=== PATIENT | male | born 1980 | race Caucasian/White ===

== ENCOUNTER 2017-06-24 20:10 | Emergency (ER) | payer OTHER ==
[2017-06-24 20:15] VITALS: PULSE 103; RESP 16; TEMP 97.4; O2SAT 98
[2017-06-24] MEDS ORDERED: Lidocaine/Epi 1% 1:100000 20 ML IJ ONE (20:42)
--- NOTE | 2017-06-24 20:45 | ED PDOC ---
HPI: Wound Care - HPI Time Seen by Provider: 06/24/17 20:19 Chief Complaint (Nursing): Abnormal Skin Integrity Chief Complaint (Provider): forehead laceration History Per: Patient History Of Present Illness: 36 y/o male ambulates to ED for evaluation of forehead laceration sustained prior to arrival. Patient states he slipped and hit head in to brick wall, with + loss of consciousness. Patient admits to drinking tonight. Denies headache, dizziness, neck/back pain, facial pain, nausea/vomiting, vision changes, extremity numbness/weakness. Tetanus up to date. Past Medical History Reviewed: Historical Data, Nursing Documentation, Vital Signs Vital Signs: Last Vital Signs Temp 97.4 F L 06/24/17 20:12 Pulse 103 H 06/24/17 20:12 Resp 16 06/24/17 20:12 BP 143/85 06/24/17 20:12 Pulse Ox 98 06/24/17 20:12 - Medical History PMH: No Chronic Diseases - Surgical History Surgical History: No Surg Hx - Family History Family History: States: No Known Family Hx - Living Arrangements Living Arrangements: Alone - Social History Current smoker - smoking cessation education provided: No Ex-Smoker (has not smoked in the last 12 months): No Alcohol: Social Drugs: Denies - Home Medications Home Medications: Ambulatory Orders Medication Instructions Recorded Ibuprofen [Motrin] 400 mg PO Q6 #30 tab 08/13/15 - Allergies Allergies/Adverse Reactions: Allergies Allergy/AdvReac Type Severity Reaction Status Date / Time No Known Allergies Allergy Verified 08/12/15 23:58 Review of Systems ROS Statement: Except As Marked, All Systems Reviewed And Found Negative Skin: Positive for: Other (forehead laceration) Physical Exam - Reviewed Nursing Documentation Reviewed: Yes Vital Signs Reviewed: Yes - Physical Exam Appears: Positive for: Well, Non-toxic, No Acute Distress Head Exam: Positive for: NORMOCEPHALIC. Negative for: ATRAUMATIC (2.5cm laceration left frontal scalp, mild surrounding edema) Skin: Positive for: Normal Color Eye Exam: Positive for: Normal appearance, EOMI, PERRL ENT: Positive for: TM Is/Are (clear bilaterally), Other (nasal abrasion; no swelling, tenderness, deformity noted. No septal hematoma bilaterally). Negative for: Nasal Congestion Cardiovascular/Chest: Positive for: Regular Rate, Rhythm Respiratory: Positive for: Normal Breath Sounds Gastrointestinal/Abdominal: Positive for: Normal Exam Back: Positive for: Normal Inspection Extremity: Positive for: Normal ROM Neurologic/Psych: Positive for: Alert, Oriented (x3), Gait (steady) - ECG O2 Sat by Pulse Oximetry: 98 - Progress ED Course And Treament: CT head Patient requesting Plastic Surgeon to repair facial laceration. Case discussed with Dr. Leal, who has agreed to come repair laceration EXAM: CT Head Without Intravenous Contrast CLINICAL HISTORY: 36 years old, male; Injury or trauma; Fall; Initial encounter; Concussion / head injury; With loss of consciousness; Not specified; Additional info: Head injury, ETOH. Sent phy. Doc. TECHNIQUE: Axial computed tomography images of the head/brain without intravenous contrast. All CT scans at this facility use one or more dose reduction techniques, viz.: automated exposure control; ma/kV adjustment per patient size (including targeted exams where dose is matched to indication; i.e. head); or iterative reconstruction technique. Coronal and sagittal reformatted images were created and reviewed. COMPARISON: No relevant prior studies available. FINDINGS: Limitations: Motion artifact - mild. Brain: Mild atrophy. No definite intracranial hemorrhage. No mass. No definite edema. Benign cerebellar tonsillar ectopia. Ventricles: No hydrocephalus. Bones/joints: No acute fracture. Soft tissues: Frontal soft tissue swelling. Sinuses: Scattered minimal mucosal thickening. Mastoid air cells: No mastoid effusion. Orbits: Unremarkable as visualized. IMPRESSION: 1. No definite intracranial hemorrhage. 2. Incidental/non-acute findings are described above. Laceration repair performed by Dr. Leal; recommends follow up in office in 1 week. Return precautions given. Disposition - Clinical Impression Clinical Impression: Forehead laceration, Head injury - Patient ED Disposition Is Patient to be Admitted: No Counseled Patient/Family Regarding: Studies Performed, Diagnosis, Need For Followup - Disposition Referrals: Benjamin Leal MD [Medical Doctor] - Disposition: Routine/Home Disposition Time: 22:19 Condition: IMPROVED Instructions: Laceration Repair With Stitches (DC), Minor Head Injury Forms: [employer] (Stateless)
[2017-06-24] MEDS ORDERED: Lidocaine 1% w Epi 1:100,000 Inj ONE (21:11)
--- NOTE | 2017-06-24 21:22 | CT ---
EXAM: CT Head Without Intravenous Contrast CLINICAL HISTORY: 36 years old, male; Injury or trauma; Fall; Initial encounter; Concussion / head injury; With loss of consciousness; Not specified; Additional info: Head injury, ETOH. Sent phy. Doc. TECHNIQUE: Axial computed tomography images of the head/brain without intravenous contrast. All CT scans at this facility use one or more dose reduction techniques, viz.: automated exposure control; ma/kV adjustment per patient size (including targeted exams where dose is matched to indication; i.e. head); or iterative reconstruction technique. Coronal and sagittal reformatted images were created and reviewed. COMPARISON: No relevant prior studies available. FINDINGS: Limitations: Motion artifact - mild. Brain: Mild atrophy. No definite intracranial hemorrhage. No mass. No definite edema. Benign cerebellar tonsillar ectopia. Ventricles: No hydrocephalus. Bones/joints: No acute fracture. Soft tissues: Frontal soft tissue swelling. Sinuses: Scattered minimal mucosal thickening. Mastoid air cells: No mastoid effusion. Orbits: Unremarkable as visualized. IMPRESSION: 1. No definite intracranial hemorrhage. 2. Incidental/non-acute findings are described above.
[2017-06-24 22:38] VITALS: BP 128/76
== END 2017-06-24 22:20 | disposition home or self-care (01) ==
LOC: H.ER 20:10
DX: S01.81XA Laceration without foreign body of other part of head, initial encounter (principal); S06.9X9A Unspecified intracranial injury with loss of consciousness of unspecified duration, initial encounter; W01.0XXA Fall on same level from slipping, tripping and stumbling without subsequent striking against object, initial encounter; Y92.89 Other specified places as the place of occurrence of the external cause